=== PATIENT | male | born 2000 | race Caucasian/White ===

== ENCOUNTER 2019-11-01 21:53 | Emergency (ER) | payer BC, SELFPAY ==
[2019-11-01 21:55] VITALS: BP 153/99; PULSE 96; RESP 16; TEMP 36.9; O2SAT 99; BMI 27.1
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
[2019-11-01 22:47] LABS: Basophils # 0.1 K/mm3 (0-0.2); Eosinophils # 0.3 K/mm3 (0.0-0.4); Eosinophils % 4.1 % (0.1-12.0); Hemoglobin 17.7 g/dL (14.1-18.0); Lymphocytes # 2.5 K/mm3 (0.7-4.5); Lymphocytes % 31.5 % (10-50); Mean Corpuscular HGB Conc 36.1 g/dL (31.8-35.4); Mean Corpuscular Volume 88.5 fl (80-94); Mean Platelet Volume 6.9 fl (7.4-10.4); Monocytes # 0.4 K/mm3 (0.1-1.0); Monocytes % 5.3 % (1.7-9.3); Neutrophils # 4.5 K/mm3 (1.8-7.8); Neutrophils % 58.1 % (37.0-80.0); Platelet Count 235 K/mm3 (142-424); Red Blood Count 5.54 M/mm3 (4.60-6.20); Red Cell Distribution Width 13.9 % (11.5-17.5); White Blood Count 7.8 K/mm3 (4.8-10.8)
[2019-11-01 22:53] LABS: Chloride 100 mmol/L (98-107); Sodium 141 mmol/L (136-145)
[2019-11-01 22:54] LABS: Potassium 4.1 mmoL/L (3.5-5.1)
[2019-11-01 22:56] LABS: Albumin Level 4.5 g/dl (3.5-5.0); Albumin/Globulin Ratio 1.7 (1.1-1.8); Alkaline Phosphatase 50 U/L (38-126); Anion Gap 13.1 mEq/L (5-15); Bilirubin,Total 0.9 mg/dl (0.2-1.3); Blood Urea Nitrogen 14 mg/dl (9-20); Carbon Dioxide 32 mmol/L (22.0-30.0); Creatinine Clearance Estimated 214 mL/min (50-200); Estimated Glomerular Filt Rate 142 ml/min (>60); GFR (African American) 172 ML/MIN (>60); Globulin 2.6 g/dL (1.3-3.2); Total Protein,Serum 7.1 g/dl (6.3-8.2)
[2019-11-01 22:57] LABS: Alanine Aminotransferase 19 U/L (12-78); Aspartate Amino Transferase 34 U/L (17-59); Calcium 8.7 mg/dl (8.4-10.2); Glucose 112 mg/dl (74-100)
[2019-11-01 23:23] VITALS: BP 148/78; PULSE 88; RESP 14; TEMP 36.9; O2SAT 99
== END 2019-11-01 23:26 | disposition home or self-care (01) ==
PROVIDERS: Emergency Provider Emergency Medicine; PCP Family Medicine
DX: R51 Headache (principal); F17.210 Nicotine dependence, cigarettes, uncomplicated
CPT/HCPCS: 80053; 85025; 96365; 96375; 99282

== ENCOUNTER 2019-12-09 23:16 | Emergency (ER) | payer BC, SELFPAY ==
[2019-12-09 23:24] VITALS: BP 157/103; PULSE 95; RESP 17; TEMP 37.1; O2SAT 100; BMI 27.1
--- NOTE | 2019-12-09 23:27 | XR_ITS ---
PROCEDURE: XR HAND RT MIN 3V CLINICAL INDICATION: injury Pain following injury COMPARISON: CR XR SHOULDER LT MIN 2V from 12/09/2019 FINDINGS: No fracture or dislocation. No lytic or blastic change. There is normal mineralization. The joint spaces are well-preserved. No significant degenerative/arthritic changes. No erosive changes evident. Other findings:None. IMPRESSION: No acute findings. Dictated by: Hernando Obrien MD 12/10/2019 07:28 Hernando Obrien MD in [facility] 12/10/2019 07:28
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
[2019-12-10 00:11] VITALS: BP 159/97; PULSE 81; RESP 16; O2SAT 100
[2019-12-10 00:25] VITALS: BP 150/89; PULSE 89; RESP 16; TEMP 37.1; O2SAT 98
== END 2019-12-10 00:26 | disposition home or self-care (01) ==
PROVIDERS: Emergency Provider Emergency Medicine; PCP Family Medicine
DX: S63.91XA Sprain of unspecified part of right wrist and hand, initial encounter (principal); S43.402A Unspecified sprain of left shoulder joint, initial encounter; X50.3XXA Overexertion from repetitive movements, initial encounter; Y92.019 Unspecified place in single-family (private) house as the place of occurrence of the external cause
CPT/HCPCS: 73030; 73130; 99282

== ENCOUNTER 2019-12-21 01:16 | Emergency (ER) | payer BC, SELFPAY ==
[2019-12-21 01:26] VITALS: BP 150/98; PULSE 98; RESP 16; TEMP 36.9; O2SAT 98; BMI 24.4
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
--- NOTE | 2019-12-21 01:35 | XR_ITS ---
PROCEDURE: XR SHOULDER RT MIN 2V CLINICAL INDICATION: Injury Posttraumatic pain COMPARISON: CR XR SHOULDER LT MIN 2V from 12/09/2019 FINDINGS: No fracture or dislocation. No lytic or blastic change. There is normal mineralization. The joint spaces are well-preserved. No significant degenerative/arthritic changes. No erosive changes evident. Other findings:None. IMPRESSION: No acute findings. Dictated by: Hernando Obrien MD 12/21/2019 06:36 Hernando Obrien MD in [facility] 12/21/2019 06:36
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
[2019-12-21 02:15] VITALS: BP 148/78; PULSE 92; RESP 16; TEMP 36.9; O2SAT 98
== END 2019-12-21 02:18 | disposition home or self-care (01) ==
PROVIDERS: Emergency Provider Emergency Medicine; PCP Family Medicine
DX: S53.401A Unspecified sprain of right elbow, initial encounter (principal); S63.501A Unspecified sprain of right wrist, initial encounter; X50.3XXA Overexertion from repetitive movements, initial encounter; Y92.018 Other place in single-family (private) house as the place of occurrence of the external cause; F17.210 Nicotine dependence, cigarettes, uncomplicated
CPT/HCPCS: 73030; 73080; 73110; 99282

== ENCOUNTER 2019-12-24 20:30 | Emergency (ER) | payer BC, SELFPAY ==
[2019-12-24] VITALS (7 sets, daily range): BP systolic 123–156; BP diastolic 67–87; PULSE 88–106; RESP 15–17; TEMP 36.6–36.8; O2SAT 96–100; BMI 27.1
--- NOTE | 2019-12-24 20:36 | PC.NURSE ---
trauma alert called
[2019-12-24 20:44] LABS: POC Glucose,Bedside 83 (70-110)
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
--- NOTE | 2019-12-24 20:50 | PC.NURSE ---
Trauma alert cancelled at 2041.
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
[2019-12-24 20:58] LABS: Basophils # 0.1 K/mm3 (0-0.2); Eosinophils # 0.1 K/mm3 (0.0-0.4); Lymphocytes # 2.9 K/mm3 (0.7-4.5); Red Cell Distribution Width 13.4 % (11.5-17.5)
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
[2019-12-24 21:22] LABS: INR 1.04 (0.9-1.1); Prothrombin Time 10.7 seconds (9.4-11.8)
[2019-12-24 21:25] LABS: Basophils % 1.1 % (0.1-2.0); Hematocrit 53.2 % (42.0-52.0); Lymphocytes % 28.3 % (10-50); Mean Corpuscular HGB Conc 35.2 g/dL (31.8-35.4); Mean Corpuscular Hemoglobin 32.1 pg (27.0-31.2); Mean Corpuscular Volume 91.2 fl (80-94); Monocytes # 0.5 K/mm3 (0.1-1.0); Monocytes % 4.9 % (1.7-9.3); Neutrophils # 6.7 K/mm3 (1.8-7.8); Neutrophils % 64.7 % (37.0-80.0); Platelet Count 274 K/mm3 (142-424); Red Blood Count 5.83 M/mm3 (4.60-6.20); White Blood Count 10.3 K/mm3 (4.8-10.8)
--- NOTE | 2019-12-24 21:25 | PC.NURSE ---
pt still in radiology
[2019-12-24 21:26] LABS: Hemoglobin 18.8 g/dL (14.1-18.0)
[2019-12-24 21:29] LABS: Alanine Aminotransferase 30 U/L (12-78); Albumin Level 5.4 g/dl (3.5-5.0); Albumin/Globulin Ratio 1.5 (1.1-1.8); Alkaline Phosphatase 90 U/L (38-126); Anion Gap 15.1 mEq/L (5-15); Aspartate Amino Transferase 46 U/L (17-59); Bilirubin,Total 1.1 mg/dl (0.2-1.3); Blood Urea Nitrogen 10 mg/dl (9-20); Calcium 10.1 mg/dl (8.4-10.2); Carbon Dioxide 31 mmol/L (22.0-30.0); Chloride 102 mmol/L (98-107); Creatinine Clearance Estimated 187 mL/min (50-200); Estimated Glomerular Filt Rate 122 ml/min (>60); GFR (African American) 148 ML/MIN (>60); Globulin 3.6 g/dL (1.3-3.2); Glucose 86 mg/dl (74-100); Potassium 3.1 mmoL/L (3.5-5.1); Sodium 145 mmol/L (136-145)
[2019-12-24 22:10] LABS: Lactic Acid 1.4 mmol/L (0.7-2.1)
== END 2019-12-24 23:45 | disposition home or self-care (01) ==
PROVIDERS: Emergency Provider Student in an Organized Health Care Education/Training Program; PCP Family Medicine
DX: S00.03XA Contusion of scalp, initial encounter (principal); S10.93XA Contusion of unspecified part of neck, initial encounter; S30.0XXA Contusion of lower back and pelvis, initial encounter; S20.212A Contusion of left front wall of thorax, initial encounter; S20.211A Contusion of right front wall of thorax, initial encounter; V86.56XA Driver of dirt bike or motor/cross bike injured in nontraffic accident, initial encounter; Y92.414 Local residential or business street as the place of occurrence of the external cause; F17.210 Nicotine dependence, cigarettes, uncomplicated
CPT/HCPCS: 29799; 70450; 71045; 71275; 72125; 72128; 72131; 72170; 74177; 80053; 82962; 83605; 85025; 85610; 85730; 99283; Q9967

== ENCOUNTER 2021-05-11 13:40 | Emergency (ER) | payer BC, SELFPAY ==
[2021-05-11 15:22] VITALS: BP 165/99; PULSE 77; RESP 18; TEMP 37.1; O2SAT 100; BMI 27.1
--- NOTE | 2021-05-11 15:34 | XR_ITS ---
PROCEDURE INFORMATION: Exam: XR Right Ankle Exam date and time: 05/11/2021 3:34 PM Age: 21 years old Clinical indication: Injury or trauma; Other: Rolled ankle; Sprain or strain; Right; Injury date: 05/08/21 TECHNIQUE: Imaging protocol: XR Right ankle. Views: 3 or more views. COMPARISON: No relevant prior studies available. FINDINGS: Bones/joints: Osseous anatomic alignment is well preserved. No acutely displaced fracture or dislocation. Joint spaces are well preserved. Soft tissues: There is soft tissue swelling. IMPRESSION: 1. Diffuse soft tissue swelling. 2. No acute skeletal pathology.
--- NOTE | 2021-05-11 15:58 | [facility].EDGENADL ---
ED Disposition Clinical Impression: Ankle sprain and strain Disposition: Home, Self-Care Condition on Discharge: Good Referrals: Provider,Referral, [Primary Care Provider] - - Critical Care Critical Care Time: No Attestation: On 05/11/21, the high probability of a clinically significant, sudden or life threatening deterioration of the following system(s) required my full and direct attention, intervention and personal management. The time I documented below is in addition to time spent performing reported procedures but includes the following listed in this critical care notation. Medical Decision Making - Demarco Inquiry Pt receiving controlled substance: No Vital Signs: 05/11/21 15:22 Temperature 98.7 F Temperature Source Oral Pulse Rate [Left Radial] 77 Respiratory Rate 18 Blood Pressure [Right Arm] 165/99 H Blood Pressure Mean [Right Arm] 121 Blood Pressure Source [Right Arm] Automatic Cuff Blood Pressure Position [Right Arm] Sitting 02 Sat by Pulse Oximetry 100 Oxygen Delivery Method Room Air Orders (Tests/Meds): ORDERS Category Date Time Status Ankle XR -Right minimum 3 Views [XR ankle RT min 3V] Exams 05/11/21 15:34 Taken Stat Medical Decision Narrative: DDx includes but not limited to ligamentous sprain, muscular sprain, ankle fracture. HDS, NAD, ambulating without significant difficulty, neurovascularly intact with normal gross sensation, intact DP and PT pulses, normal rom despite some pain on exam. Most consistent with ankle sprain. XR ordered to assess for bony injury and without acute evidence of this. Advised on RICE method. Offered lidocaine patch, tylenol, ibuprofen for pain in ED, refused, states pain is manageable without pain meds and is mild now. Given ED return precautions. General Adult HPI - General Chief complaint: Extremity Injury, Lower Stated complaint: right ankle pain Time Seen by Provider: 05/11/21 15:58 Mode of Arrival: Ambulatory Limitations: No Limitations Description of Symptoms (Recalled from ER Triage Doc. by RN): c/o right ankle pain for 2 days after, states the ankle went to the side and he heard a crunch and pop - History of Present Illness HPI narrative: 21 yo male w/ no reported PMH presents for evaluation of right ankle pain. Patient reports 2 days ago he twisted his right ankle while stepping off a curb, it twisted inward, and he felt immediately pain, swelling, heard a pop in his right ankle. Right ankle worse with ambulation and movement of foot/ankle, denies other injury. - Related Data Previous Rx's Medication Instructions Recorded Cyclobenzaprine HCl [Flexeril 10mg 10 mg PO Q8HP PRN #7 tab 12/24/19 tablet] Allergies Allergy/AdvReac Type Severity Reaction Status Date / Time No Known Allergies Allergy Verified 12/24/19 21:02 [facility] History - Hepatitis A Screen Drug use history?: No High risk sexual behaviors?: No History of sexually transmitted infection?: No Currently employed?: No Childcare worker?: No Do you have indoor plumbing?: Yes Do you have electricity?: Yes Attestation statement:: This patient has been screened for Hepatitis A risk factors. Medical History: Denies:: Cancer, Chronic Obstructive Pulmonary Disease (COPD), Diabetes Mellitus Type 1, Diabetes Mellitus Type 2, MRSA Amputation: No Fractures: No - Social History Smoking Status: Current every day smoker Tobacco Type: cigarettes # Packs/Day (cigarettes): 1 Alcohol Intake: current Alcohol Intake Frequency:: a few times a month Occupational Status: other Housing: house ROS Obtained: Yes All systems reviewed & no additional complaints - Musculoskeletal Musculoskeletal: Reports joint pain, Reports joint swelling Physical Exam - General General appearance: alert, in no apparent distress - Respiratory Respiratory exam: Absent: respiratory distress - Cardiovascular Cardiovascular exam: Present: regular rate, normal rhythm -
[2021-05-11 16:16] VITALS: BP 148/70; PULSE 70; RESP 16; TEMP 36.8; O2SAT 98
== END 2021-05-11 16:17 | disposition home or self-care (01) ==
LOC: UTC 13:42 → ER 13:42
PROVIDERS: Emergency Provider Student in an Organized Health Care Education/Training Program
DX: S93.401A Sprain of unspecified ligament of right ankle, initial encounter (principal); X50.1XXA Overexertion from prolonged static or awkward postures, initial encounter; Y92.89 Other specified places as the place of occurrence of the external cause; F17.210 Nicotine dependence, cigarettes, uncomplicated
CPT/HCPCS: 73610; 99282